=== PATIENT | male | born 1990 ===

== ENCOUNTER 2018-02-17 17:18 | Emergency (ER) | payer OTHER ==
--- NOTE | 2018-02-17 18:29 | C.PDOC ---
History Of Present Illness 28-year-old male presents to the ER for evaluation of right hand injury sustained 4 days ago. Patient states he first noticed symptoms after boxing. He reports gradually worsening pain and swelling over the right 2nd digit since then. Denies numbness, tingling, or focal weakness. Time Seen by Provider: 02/17/18 17:39 Chief Complaint (Nursing): Finger,Hand,&Wrist History Per: Patient History/Exam Limitations: no limitations Onset/Duration Of Symptoms: Days Current Symptoms Are (Timing): Still Present Past Medical History Reviewed: Historical Data, Nursing Documentation, Vital Signs Vital Signs: Last Vital Signs Temp 98.6 F 02/17/18 19:00 Pulse 62 02/17/18 19:00 Resp 18 02/17/18 19:00 BP 102/63 02/17/18 19:00 Pulse Ox 98 02/17/18 19:00 - Medical History PMH: Fractures (Right 4th and 5th fingers) Other Surgeries: Right hand surgery Family History: States: Unknown Family Hx - Social History Hx Tobacco Use: Yes Hx Alcohol Use: Yes Hx Substance Use: No - Immunization History Hx Tetanus Toxoid Vaccination: Yes Hx Influenza Vaccination: No Hx Pneumococcal Vaccination: No Review Of Systems Except As Marked, All Systems Reviewed And Found Negative. Musculoskeletal: Positive for: Hand Pain (right) Neurological: Negative for: Weakness, Numbness, Incoordination Physical Exam - Physical Exam Appears: Non-toxic, No Acute Distress Skin: Normal Color, Warm, No Rash Head: Atraumatic, Normacephalic Eye(s): bilateral: Normal Inspection Oral Mucosa: Moist Neck: Normal ROM, Supple Extremity: Normal ROM, No Tenderness, Capillary Refill (< 2 sec), No Deformity, Swelling (mild swelling over the PIP of right 2nd digit) Extremity: Bilateral: Normal Color And Temperature Pulses: Left Radial: Normal, Right Radial: Normal Neurological/Psych: Oriented x3, Normal Speech, Normal Motor, Normal Sensation, Other (No focal deficits) ED Course And Treatment O2 Sat by Pulse Oximetry: 97 (RA) Pulse Ox Interpretation: Normal - Other Rad XR R index finger X-Ray: Viewed By Me, Read By Radiologist Interpretation: Accession No. : [id number]. Patient Name / ID : ALEXANDER REYES / [id number]. Exam Date : 02/17/2018 18:11:15 ( Approved ). Study Comment : Sex / Age : M / 28Y. Creator : Naveen Andrews MD. Dictator : Naveen Andrews MD. Supervisor Paste Mixing : Field Map Technician : Naveen Andrews MD. Approver2 : Report Date : 02/17/2018 18:30:59. My Comment : . PROCEDURE: Right Index finger radiographs. HISTORY: INJURY. COMPARISON: Right hand radiographs dated 12/29/2015. TECHNIQUE: AP radiograph of the right hand, as well as spot oblique and lateral images of index finger were obtained. FINDINGS: RIGHT INDEX FINGER: Nondisplaced intra-articular fracture of the radial base of the 2nd middle phalanx. Old, healed fractures of the 4th and 5th metacarpals. JOINTS: Normal. SOFT TISSUES: Circumferential soft tissue swelling surrounding the 2nd proximal interphalangeal joint. OTHER FINDINGS: None. IMPRESSION: Nondisplaced intraarticular radial base/volar plate fracture of the 2nd middle phalanx. Medical Decision Making Medical Decision Making: Time: 18:04 Plan: * Right Hand X-Ray (Index Finger) X-ray demonstrated (+) fracture. Results discussed with patient in detail. Splint applied by me. Patient is stable for discharge home. Advised to follow up with orthopedist/hand specialist for further evaluation. Disposition Counseled Patient/Family Regarding: Studies Performed, Diagnosis, Need For Followup, Rx Given - Disposition Referrals: Eh Ferrer MD [Staff Provider] - Disposition: HOME/ ROUTINE Disposition Time: 18:55 Condition: STABLE Additional Instructions: Follow up with the Hand doctor within 1-2 days without fail. Prescriptions: Acetaminophen [Tylenol] 325 mg PO Q6 PRN #30 tab PRN Reason: Pain, Moderate (4-7) Instructions: Finger Fracture (DC) Forms: [facility] (Colombian), Work Excuse - POA Present On Arrival: None - Clinical Impression Clinical Impression: Finger fracture - PA / DENTAL HYGIENE PROFESSOR / Resident Statement MD/DO has reviewed & agrees with the documentation as recorded. - Scribe Statement The provider has reviewed the documentation as recorded by the Scribe (Nuria Naik) All medical record entries made by the Scribe were at my direction and personally dictated by me. I have reviewed the chart and agree that the record accurately reflects my personal performance of the history, physical exam, medical decision making, and the department course for this patient. I have also personally directed, reviewed, and agree with the discharge instructions and disposition.
--- NOTE | 2018-02-17 18:32 | RAD ---
PROCEDURE: Right Index finger radiographs. HISTORY: INJURY COMPARISON: Right hand radiographs dated 12/29/2015. TECHNIQUE: AP radiograph of the right hand, as well as spot oblique and lateral images of index finger were obtained. FINDINGS: RIGHT INDEX FINGER: Nondisplaced intra-articular fracture of the radial base of the 2nd middle phalanx. Old, healed fractures of the 4th and 5th metacarpals. JOINTS: Normal. SOFT TISSUES: Circumferential soft tissue swelling surrounding the 2nd proximal interphalangeal joint. OTHER FINDINGS: None. IMPRESSION: Nondisplaced intraarticular radial base/volar plate fracture of the 2nd middle phalanx.
[2018-02-17 19:15] VITALS: BP 102/63; PULSE 62; RESP 18; TEMP 98.6
[2018-02-17 22:20] VITALS: O2SAT 97
== END 2018-02-17 19:10 | disposition home or self-care (01) ==
LOC: C.ER 17:18
DX: S62.650A Nondisplaced fracture of middle phalanx of right index finger, initial encounter for closed fracture (principal); X50.0XXA Overexertion from strenuous movement or load, initial encounter; Y93.71 Activity, boxing; Y92.89 Other specified places as the place of occurrence of the external cause

== ENCOUNTER 2018-06-07 14:49 | Emergency (ER) | payer MEDICAID, OTHER ==
[2018-06-07 14:57] VITALS: BMI 24.3
[2018-06-07 15:17] VITALS: RESP 20
--- NOTE | 2018-06-07 15:18 | C.PDOC ---
History Of Present Illness 28 year old male presents to ED complaining of left lower back pain that radiates down to left leg and left coe. Patient reports tripping and landing on his back four days ago at work. Denies hitting head on fall, dizziness, loss of consciousness, weakness, numbness. Time Seen by Provider: 06/07/18 15:14 Chief Complaint (Nursing): Lower Extremity Problem/Injury History Per: Patient History/Exam Limitations: no limitations Onset/Duration Of Symptoms: Days Current Symptoms Are (Timing): Still Present Past Medical History Reviewed: Historical Data, Nursing Documentation, Vital Signs Vital Signs: Last Vital Signs Temp 98.5 F 06/07/18 15:12 Pulse 64 06/07/18 15:12 Resp 20 06/07/18 15:12 BP 127/74 06/07/18 15:12 Pulse Ox 100 06/07/18 15:12 - Medical History PMH: Fractures (Right 4th and 5th fingers) Surgical History: No Surg Hx Family History: States: No Known Family Hx - Social History Hx Tobacco Use: Yes Hx Alcohol Use: Yes Hx Substance Use: No - Immunization History Hx Tetanus Toxoid Vaccination: No Hx Influenza Vaccination: No Hx Pneumococcal Vaccination: No Review Of Systems Except As Marked, All Systems Reviewed And Found Negative. Constitutional: Negative for: Fever, Chills Musculoskeletal: Positive for: Back Pain (Left lower back pain.), Leg Pain (Left leg pain that radiates from lower back. ) Neurological: Positive for: Other (Did not hit head on fall. Did not lose consciousness.). Negative for: Weakness, Numbness, Dizziness Physical Exam - Physical Exam Appears: Non-toxic, No Acute Distress Skin: Warm, Dry Head: Atraumatic, Normacephalic Eye(s): bilateral: PERRL, EOMI Oral Mucosa: Moist Neck: Supple Chest: Symmetrical, No Deformity Cardiovascular: Rhythm Regular Respiratory: Normal Breath Sounds, No Rales, No Rhonchi, No Wheezing Gastrointestinal/Abdominal: Normal Exam, Bowel Sounds, Soft, No Tenderness Back: No CVA Tenderness, Muscle Spasm (Lower left back), Paraspinal Tenderness (left low back tenderness to palpation), Straight Leg Raising (Negative) Extremity: Bilateral: Atraumatic Neurological/Psych: Oriented x3, Normal Speech, Normal Motor, Normal Sensation ED Course And Treatment O2 Sat by Pulse Oximetry: 100 (RA) Pulse Ox Interpretation: Normal - Other Rad ls SPINE X-Ray: Interpreted by Me, Viewed By Me Interpretation: no acute fx or dislocation Reassessment Condition: Improved (reports improvement of pain, ambulates with steady gait, speaks in full sentences) Medical Decision Making Medical Decision Making: Plan: * Flexeril * Toradol * X-ray LS spine Disposition Counseled Patient/Family Regarding: Studies Performed, Diagnosis, Need For Followup, Rx Given - Disposition Referrals: [facility] [Outside] [facility] [Outside] Disposition: HOME/ ROUTINE Disposition Time: 15:58 Condition: STABLE Additional Instructions: FOLLOW UP WITH PMD/CLINIC FOR PHYSICAL THERAPY REFERRAL ON SATURDAY. LS SPINE XRAY WAS TAKEN TODAY AND OFFICIAL REPORT IS PENDING. IF URINARY/BOWEL INCONTINENCE OR LEG WEAKNESS/NUMBNESS DEVELOP RETURN TO ED [facility]. Prescriptions: Cyclobenzaprine [Cyclobenzaprine HCl] 1 tab PO TID PRN #21 tab PRN Reason: Pain, Moderate (4-7) Ibuprofen [Motrin Tab] 1 tab PO Q6H PRN #15 tab PRN Reason: Pain, Moderate (4-7) Instructions: Sciatica (DC) Forms: [employer] Connect (Albanian), General Discharge Instructions - Clinical Impression Clinical Impression: Sciatic leg pain - PA / CRIMINALIST / Resident Statement MD/DO has reviewed & agrees with the documentation as recorded. - Scribe Statement The provider has reviewed the documentation as recorded by the Scribe Lul Quevedo All medical record entries made by the Scribe were at my direction and personally dictated by me. I have reviewed the chart and agree that the record accurately reflects my personal performance of the history, physical exam, medical decision making, and the department course for this patient. I have also personally directed, reviewed, and agree with the discharge instructions and disposition.
[2018-06-07 16:13] VITALS: BP 127/79; PULSE 66; TEMP 98.1
[2018-06-07 16:45] VITALS: O2SAT 100
--- NOTE | 2018-06-07 16:46 | RAD ---
Date of service: 06/07/2018 PROCEDURE: Radiographs of the Lumbar Spine. HISTORY: pain p fall COMPARISON: No prior. FINDINGS: BONES: Straightened curvature, possibly congenital, given straightened sacral curvature as well. No listhesis. No fracture. DISC SPACES: Unremarkable. OTHER FINDINGS: None. IMPRESSION: Straightened curvature. This may be congenital. Please see discussion above. No acute fracture or spondylolisthesis identified.
== END 2018-06-07 16:43 | disposition home or self-care (01) ==
LOC: C.ER 14:49
DX: M54.32 Sciatica, left side (principal); M79.605 Pain in left leg
CPT/HCPCS: 72100; 96372; 99284; J1885